=== PATIENT | female | born 1980 | race Caucasian/White ===

== ENCOUNTER 2017-02-22 10:49 | Emergency (ER) | payer BC, OTHER ==
--- NOTE | 2017-02-22 11:03 | EDM.PDOC ---
ED HPI GENERAL MEDICAL PROBLEM - General Chief Complaint: Behavioral/Psych Stated Complaint: MEDICAL CLEARANCE Time Seen by Provider: 02/22/17 11:00 - History of Present Illness INITIAL COMMENTS - FREE TEXT/NARRATIVE: HISTORY AND PHYSICAL: History of present illness: Patient 37-year-old female in custody of police who presents for medical clearance for incarceration Review of systems: As per history of present illness and below otherwise all systems reviewed and negative. Past medical history: As per history of present illness and as reviewed below otherwise noncontributory. Surgical history: As per history of present illness and as reviewed below otherwise noncontributory. Social history: No reported history of drug or alcohol abuse. Family history: As per history of present illness and as reviewed below otherwise noncontributory. Physical exam: HEENT: Atraumatic, normocephalic, pupils reactive, negative for conjunctival pallor or scleral icterus, mucous membranes moist, throat clear, neck supple, nontender, trachea midline. Lungs: Clear to auscultation, breath sounds equal bilaterally, chest nontender. Heart: S1S2, regular, negative for clicks, rubs, or JVD. Abdomen: Soft, nondistended, nontender. Negative for masses or hepatosplenomegaly. Negative for costovertebral tenderness. Pelvis: Stable nontender. Genitourinary: Deferred. Rectal: Deferred. Extremities: Atraumatic, negative for cords or calf pain. Neurovascular unremarkable. Neuro: Awake, alert, follows commands and moves all extremities limited grossly nonfocal exam Diagnostics: None Therapeutics: None Impression: #1 medically clear for incarceration Definitive disposition and diagnosis as appropriate pending reevaluation and review of above. - Related Data Allergies Allergy/AdvReac Type Severity Reaction Status Date / Time Unable to Assess Allergy Unverified 02/22/17 10:57 Home Meds: Home Meds . [Unable to Verify Home Med List] 02/22/17 [History] ED ROS GENERAL - Review of Systems Review Of Systems: ROS reveals no pertinent complaints other than HPI. ED EXAM, GENERAL - Physical Exam Exam: See Below (See dictation) Departure - Departure Time of Disposition: 11:02 Disposition: Home, Self-Care 01 Condition: Good Clinical Impression: Medical clearance for incarceration - Discharge Information Forms: ED Department Discharge Additional Instructions: The following information is given to patients seen in the emergency department who are being discharged to home. This information is to outline your options for follow-up care. We provide all patients seen in our emergency department with a follow-up referral. The need for follow-up, as well as the timing and circumstances, are variable depending upon the specifics of your emergency department visit. If you don't have a primary care physician on staff, we will provide you with a referral. We always advise you to contact your personal physician following an emergency department visit to inform them of the circumstance of the visit and for follow-up with them and/or the need for any referrals to a consulting specialist. The emergency department will also refer you to a specialist when appropriate. This referral assures that you have the opportunity for followup care with a specialist. All of these measure are taken in an effort to provide you with optimal care, which includes your followup. Under all circumstances we always encourage you to contact your private physician who remains a resource for coordinating your care. When calling for followup care, please make the office aware that this follow-up is from your recent emergency room visit. If for any reason you are refused follow-up, please contact the [facility] emergency department at and asked to speak to the emergency department charge nurse. [facility] [address] [place] [id number] Follow-up primary medical doctor 1-2 days return as needed as discussed
== END 2017-02-22 11:19 | disposition home or self-care (01) ==
LOC: MW.ED 10:49 → MERGE 10:49 → MW.ED 11:19
DX: Z02.89 Encounter for other administrative examinations (principal)
CPT/HCPCS: 99282

== ENCOUNTER 2017-03-01 19:22 | Emergency (ER) | payer BC, OTHER ==
--- NOTE | 2017-03-01 19:40 | EDM.PDOC ---
ED HPI GENERAL MEDICAL PROBLEM - General Chief Complaint: ENT Problem Stated Complaint: LOWER LIP IS ABCESS Time Seen by Provider: 03/01/17 19:36 Source of Information: Reports: Patient History Limitations: Reports: No Limitations - History of Present Illness INITIAL COMMENTS - FREE TEXT/NARRATIVE: HISTORY AND PHYSICAL: []37-year-old female presenting with symptoms over abscess to the lower inner lip History of Present Illness: []Last 3 or 4 days there has been drainage from the abscess area Patient has history of drug abuse drug of choice is methamphetamines Review of Systems: As per history of present illness and below otherwise all systems reviewed and negative. Past medical history: As per history of present illness and as reviewed below otherwise noncontributory. Surgical history: As per history of present illness and as reviewed below otherwise noncontributory. Social history: No reported history of drug or alcohol abuse. Family history: As per history of present illness and as reviewed below otherwise noncontributory. Physical exam: Alert and oriented female nontoxic. Answering questions appropriately in full sentences. HEENT: Atraumatic, normocehpalic, pupils reactive, negative for conjunctival pallor or scleral icterus, mucous membranes moist, throat clear, neck supple, nontender, trachea midline. Gingival disease there is an ulceration to the lower jawline from #26 to #22. Lungs: Clear to auscultation, breath sounds equal bilaterally, chest non tender. Heart: S1S2, regular, negative for clicks, rubs, or JVD. Abdomen: Soft, nondistended, nontender. Negative for masses or hepatossplenmegaly. Negative for costovertebral tenderness. Pelvis: Stable nontender. Genitourinary: Deferred. Rectal: Deferred Extremities: Atraumatic, negative for cords or calf pain. Neurovascular unremarkable. Neuro: Awake, alert, oriented. Cranial nerves II through XII unremarkable. Cerebellum unremarkable. Motor and sensory unremarkable throughout. Exam nonfocal. Diagnostics: []CT scan next of facial with contrast Therapeutics: [Rocephin 1 g IV] Impression: [Dental abscess Gingival disease] Plan: []Discharged to home Prescriptions will be electronically sent to [facility] Clindamycin 300 mg q 8 hrs PCN 500 mg tid for 10 days Follow-up with oral surgeon. Dr. Talamantes Definitive disposition and diagnosis as appropriate pending reevaluation and review of above. Onset: Gradual Duration: Day(s): (2-3) Location: Reports: Face Lower Oral/Mouth Pain Score (Numeric/FACES): 3 - Related Data Allergies Allergy/AdvReac Type Severity Reaction Status Date / Time Tetanus Vaccines and Toxoid Allergy Hives Verified 09/10/15 17:40 [Tetanus Vaccines & Toxoid] Home Meds: Home Meds LORazepam 1 tab PO TID 08/06/15 [History] Meclizine [Antivert] 1 tab PO TID PRN 08/06/15 [History] Naproxen Sodium 1 tab PO BID PRN 08/06/15 [History] PARoxetine [Paxil] 2 tab PO DAILY 08/06/15 [History] Clindamycin HCl [Cleocin HCl] 300 mg PO TID #30 capsule 03/01/17 [Rx] Penicillin V Potassium [IJD: Penicillin V Potassium] 500 mg PO .EVERY 6 HOURS # 20 tab 03/01/17 [Rx] Past Medical History HEENT History: Reports: None Cardiovascular History: Reports: None Respiratory History: Reports: None Gastrointestinal History: Reports: Pancreatitis Neurological History: Reports: Vertigo Psychiatric History: Reports: Anxiety, Depression, Other (See Below) Other Psychiatric History: nervous disorder Endocrine/Metabolic History: Reports: None Hematologic History: Reports: None - Infectious Disease History Infectious Disease History: Reports: Chicken Pox, Shingles - Past Surgical History HEENT Surgical History: Reports: None GI Surgical History: Reports: Cholecystectomy Neurological Surgical History: Reports: None Social & Family History - Family History Family Medical History: Noncontributory - Tobacco Use Smoking Status *Q: Current Every Day Smoker Years of Tobacco use: 15 Packs/Tins Daily: 1 - Recreational Drug Use Recreational Drug Use: Yes Drug Use in Last 12 Months: Yes Recreational Drug Type: Reports: Methamphetamine Recreational Drug Use Frequency: Daily ED ROS ENT - Review of Systems Review Of Systems: ROS reveals no pertinent complaints other than HPI. ED EXAM, ENT - Physical Exam Exam: See Below (see dictation) Course - Vital Signs Last Recorded V/S: Last Vital Signs Temp 36.4 C 03/01/17 20:44 Pulse 78 03/01/17 20:44 Resp 16 03/01/17 20:44 BP 125/71 03/01/17 20:44 Pulse Ox 99 03/01/17 20:44 - Orders/Labs/Meds Orders: Active Orders 24 hr Category Date Time Status Max Facial Sinus w Cont [CT] Stat Exams 03/01/17 19:33 Taken Sodium Chloride 0.9% [Saline Flush] Med 03/01/17 19:47 Active 10 ml FLUSH ASDIRECTED PRN Sodium Chloride 0.9% [Saline Flush] Med 03/01/17 19:47 Active 2.5 ml FLUSH ASDIRECTED PRN cefTRIAXone [Rocephin in Dextrose,Iso-Osm 1 GM/50 ML] 1 Med 03/01/17 21:31 Ordered gm Premix Bag 1 bag IV ONETIME Saline Lock Insert [OM.PC] Stat Oth 03/01/17 19:47 Ordered Medication Orders Ceftriaxone Sodium/Dextrose 1 (gm/ Premix) 50 mls @ 100 mls/hr IV ONETIME ONE Stop: 03/01/17 22:00 Last Admin: 03/01/17 21:35 Dose: 100 mls/hr Sodium Chloride (Saline Flush) 10 ml FLUSH ASDIRECTED PRN PRN Reason: Keep Vein Open Sodium Chloride (Saline Flush) 2.5 ml FLUSH ASDIRECTED PRN PRN Reason: Keep Vein Open Meds: Medications Generic Name Dose Route Start Last Admin Trade Name Freq PRN Reason Stop Dose Admin Ceftriaxone Sodium/Dextrose 1 50 mls @ 100 mls/hr 03/01/17 21:31 03/01/17 21: 35 gm/ Premix IV 03/01/17 22:00 100 mls/hr ONETIME ONE Administration Sodium Chloride 10 ml 03/01/17 19:47 Saline Flush FLUSH ASDIRECTED PRN Keep Vein Open Sodium Chloride 2.5 ml 03/01/17 19:47 Saline Flush FLUSH ASDIRECTED PRN Keep Vein Open Discontinued Medications Generic Name Dose Route Start Last Admin Trade Name Freq PRN Reason Stop Dose Admin Ceftriaxone Sodium 1,000 mg/ 4 mls @ 4 mls/sec 03/01/17 21:09 Lidocaine HCl IM 03/01/17 21:10 ONETIME ONE Ondansetron HCl 4 mg 03/01/17 19:47 03/01/17 19:50 Zofran IVPUSH 03/01/17 19:48 4 mg ONETIME ONE Administration Ondansetron HCl Confirm 03/01/17 19:48 03/01/17 20:36 Zofran Administered 03/01/17 19:49 Not Given Dose 4 mg .ROUTE .STK-MED ONE Promethazine HCl 25 mg 03/01/17 20:37 03/01/17 20:42 Phenergan IM 03/01/17 20:38 25 mg ONETIME ONE Administration Departure - Departure Time of Disposition: 21:14 Disposition: Home, Self-Care 01 Condition: Good Clinical Impression: Dental abscess - Discharge Information Prescriptions: Clindamycin HCl [Cleocin HCl] 300 mg PO TID #30 capsule Penicillin V Potassium [IJD: Penicillin V Potassium] 500 mg PO .EVERY 6 HOURS # 20 tab Referrals: PCP,None [Primary Care Provider] - Sai Hernandez, AGUILA [Physician] - Forms: ED Department Discharge Additional Instructions: The following information is given to patients seen in the emergency department who are being discharged to home. This information is to outline your options for follow-up care. We provide all patients seen in our emergency department with a follow-up referral. The need for follow-up, as well as the timing and circumstances, are variable depending upon the specifics of your emergency department visit. If you don't have a primary care physician on staff, we will provide you with a referral. We always advise you to contact your personal physician following an emergency department visit to inform them of the circumstance of the visit and for follow-up with them and/or the need for any referrals to a consulting specialist. The emergency department will also refer you to a specialist when appropriate. This referral assures that you have the opportunity for followup care with a specialist. All of these measure are taken in an effort to provide you with optimal care, which includes your followup. Under all circumstances we always encourage you to contact your private physician who remains a resource for coordinating your care. When calling for followup care, please make the office aware that this follow-up is from your recent emergency room visit. If for any reason you are refused follow-up, please contact the [facility] emergency department at and asked to speak to the emergency department charge nurse. Referral has been and it made to Dr. Sai Hernandez oral and facial surgery [facility] [address] [place] [address] Phone number [phone] - My Orders Last 24 Hours: My Active Orders 03/01/17 19:33 Max Facial Sinus w Cont [CT] Stat 03/01/17 19:47 Sodium Chloride 0.9% [Saline Flush] 10 ml FLUSH ASDIRECTED PRN Sodium Chloride 0.9% [Saline Flush] 2.5 ml FLUSH ASDIRECTED PRN Saline Lock Insert [OM.PC] Stat 03/01/17 21:31 cefTRIAXone [Rocephin in Dextrose,Iso-Osm 1 GM/50 ML] 1 gm Premix Bag 1 bag IV ONETIME - Assessment/Plan Last 24 Hours: My Active Orders 03/01/17 19:33 Max Facial Sinus w Cont [CT] Stat 03/01/17 19:47 Sodium Chloride 0.9% [Saline Flush] 10 ml FLUSH ASDIRECTED PRN Sodium Chloride 0.9% [Saline Flush] 2.5 ml FLUSH ASDIRECTED PRN Saline Lock Insert [OM.PC] Stat 03/01/17 21:31 cefTRIAXone [Rocephin in Dextrose,Iso-Osm 1 GM/50 ML] 1 gm Premix Bag 1 bag IV ONETIME
[2017-03-01] MEDS ORDERED: Ondansetron 4 MG/2 ML SDV IVPUSH ONE (19:47)
[2017-03-01] MEDS ORDERED: Sodium Chloride 0.9% 10 ML Syringe FLUSH PRN (19:47)
[2017-03-01] MEDS ORDERED: Sodium Chloride 0.9% 2.5 ML Syringe FLUSH PRN (19:47)
[2017-03-01] MEDS ORDERED: Ondansetron 4 MG/2 ML SDV ONE (19:48)
[2017-03-01] MEDS ORDERED: Promethazine 25 MG/ML SDV IM ONE (20:37)
[2017-03-01] MEDS ORDERED: cefTRIAXone 1,000 MG in Lidocaine 1% 4 ML IM ONE (21:09)
[2017-03-01] MEDS ORDERED: cefTRIAXone 1 GM in Premix Bag 1 BAG IV ONE (21:31)
[2017-03-01 22:17] VITALS: BP 123/68
--- NOTE | 2017-03-02 09:50 | CT ---
EXAM DATE: 03/01/17 PATIENT'S AGE: 37 Patient: DIOMEDES ALVARADO Facility: [place], [place] Site . Site : [id number] Study: CT Facial [id number]/[id number] 8:31:55 PM Ordering Physician: Doctor Riley Final Report: INDICATION: SORE TO LOWER LIP X 1 WEEK Technique: Unenhanced maxillofacial CT with reformatted coronals and sagittal images. Evaluation degraded by dental amalgam. Comparison: None Findings: The bone mineralization is unremarkable. There is no fracture. Periodontal disease along the left maxillary incisor. Retention cyst versus polyps within the left maxillary sinus. No loculated fluid collection within the lower lip. The mastoid air cells are clear. The osteomeatal units are patent. The temporomandibular joints are unremarkable bilaterally. The globes and orbits are unremarkable. The imaged soft tissues and intracranial contents are grossly unremarkable. Impression: 1. No acute facial bone fracture. 2. No loculated fluid collection within the lower lip. Dictated by: Dom Haynes MD @ 03/01/2017 21:24:11 (Electronic Signature) Report Signed by Proxy. ERIKA
== END 2017-03-01 22:10 | disposition home or self-care (01) ==
LOC: MW.ED 19:22
DX: K04.7 Periapical abscess without sinus (principal); K06.8 Other specified disorders of gingiva and edentulous alveolar ridge; F17.210 Nicotine dependence, cigarettes, uncomplicated; F32.9 Major depressive disorder, single episode, unspecified; Z79.899 Other long term (current) drug therapy; Z90.49 Acquired absence of other specified parts of digestive tract
CPT/HCPCS: 70487; 96365; 96372; 96375; 99283; J0696; J2405; J2550; 99284

== ENCOUNTER 2017-12-21 08:46 | Emergency (ER) | payer BC, OTHER ==
--- NOTE | 2017-12-21 09:05 | EDM.PDOC ---
ED HPI GENERAL MEDICAL PROBLEM - General Chief Complaint: Genitourinary Problem Stated Complaint: MEDICAL CLEARANCE Time Seen by Provider: 12/21/17 08:54 - History of Present Illness INITIAL COMMENTS - FREE TEXT/NARRATIVE: HISTORY AND PHYSICAL: History of present illness: The patient is a 37-year-old female who presents with police for a medical screening exam for incarceration. She complained to the officer that she had burning with urination and that she would like refills on her medications that she has not had for the last one month. She has no complaints of fever chills chest pain shortness of breath abdominal pain vomiting or diarrhea. She states she has an IUD in place. She does have a history of psoriasis but is on no treatment for that currently. She is under arrest only for outstanding warrants and there was no trauma involved with today's events. The patient also complains of a bump on the roof of her mouth that is been there for the last several days but has no pain with swallowing and chewing. Review of systems: As per history of present illness and below otherwise all systems reviewed and negative. Past medical history: As per history of present illness and as reviewed below otherwise noncontributory. Surgical history: As per history of present illness and as reviewed below otherwise noncontributory. Social history: No reported history of drug or alcohol abuse. Family history: As per history of present illness and as reviewed below otherwise noncontributory. Physical exam: General: Well-developed well-nourished female who is nontoxic and vital signs are reviewed by me HEENT: Atraumatic, normocephalic, pupils reactive, negative for conjunctival pallor or scleral icterus, mucous membranes moist, throat clear, neck supple, nontender, trachea midline. Cervical adenopathy or nuchal rigidity. On the hard palate/with for the mouth there is a small raised area which is firm to touch nonfluctuant and nontender. Lungs: Clear to auscultation, breath sounds equal bilaterally, chest nontender. Heart: S1S2, regular rate and rhythm no overt murmurs Abdomen: Soft, nondistended, nontender. NABS. Pelvis: Deferred Genitourinary: Deferred. Rectal: Deferred. Extremities: Atraumatic, negative for cords or calf pain. Neurovascular unremarkable. Neuro: Awake, alert, oriented. Cranial nerves II through XII unremarkable. Cerebellum unremarkable. Motor and sensory unremarkable throughout. Exam nonfocal. Skin: On the face and scalp multiple plaque-like areas of psoriasis are seen which are consistent with the patient's history. A full skin exam was not performed as the patient has no complaints of that. Diagnostics: [facility] Therapeutics: [] I discussed with the patient and the officer that I would not be refilling patient's medications and that the nurse at the retirement could reevaluate her for those meds and the appropriateness of those meds while incarcerated. Impression: Medical screening exam for incarceration Definitive disposition and diagnosis as appropriate pending reevaluation and review of above. back Pain Score (Numeric/FACES): 7 - Related Data Allergies Allergy/AdvReac Type Severity Reaction Status Date / Time Tetanus Vaccines and Toxoid Allergy Hives Verified 12/21/17 08:58 [Tetanus Vaccines & Toxoid] Home Meds: Home Meds LORazepam 1 tab PO TID 08/06/15 [History] Levothyroxine 12/21/17 [History] Venlafaxine [Effexor XR] 12/21/17 [History] Past Medical History HEENT History: Reports: None Cardiovascular History: Reports: None Respiratory History: Reports: None Gastrointestinal History: Reports: Pancreatitis Neurological History: Reports: Vertigo Psychiatric History: Reports: Anxiety, Depression, Other (See Below) Other Psychiatric History: nervous disorder Endocrine/Metabolic History: Reports: None Hematologic History: Reports: None - Infectious Disease History Infectious Disease History: Reports: Chicken Pox, Shingles - Past Surgical History HEENT Surgical History: Reports: None GI Surgical History: Reports: Cholecystectomy Neurological Surgical History: Reports: None Social & Family History - Family History Family Medical History: Noncontributory - Caffeine Use Caffeine Use: Reports: Other ED ROS GENERAL - Review of Systems Review Of Systems: ROS reveals no pertinent complaints other than HPI. ED EXAM, GENERAL - Physical Exam Exam: See Below (See dictation) Course - Vital Signs Last Recorded V/S: Last Vital Signs Temp 36.4 C 12/21/17 09:00 Pulse 85 12/21/17 09:00 Resp 20 12/21/17 09:00 BP 117/84 12/21/17 09:00 Pulse Ox 99 12/21/17 09:00 - Orders/Labs/Meds Orders: Active Orders 24 hr Category Date Time Status HCG QUALITATIVE,URINE [URCHEM] Stat Lab 12/21/17 09:08 Ordered UA W/MICROSCOPIC [URIN] Stat Lab 12/21/17 09:00 Ordered Labs: Laboratory Tests 12/21/17 12/21/17 Range/Units 09:00 09:08 Urine Color YELLOW Urine Appearance CLEAR Urine pH 7.0 (5.0-8.0) Ur Specific Armstrong 1.010 (1.001-1.035) Urine Protein NEGATIVE (NEGATIVE) mg/dL Urine Glucose (UA) NEGATIVE (NEGATIVE) mg/dL Urine Ketones NEGATIVE (NEGATIVE) mg/dL Urine Occult Blood NEGATIVE (NEGATIVE) Urine Nitrite NEGATIVE (NEGATIVE) Urine Bilirubin NEGATIVE (NEGATIVE) Urine Urobilinogen 0.2 (<2.0) EU/dL Ur Leukocyte Esterase TRACE (NEGATIVE) Urine RBC 0-2 (0-2/HPF) Urine WBC 0-1 (0-5/HPF) Ur Epithelial Cells OCCASIONAL (NONE-FEW) Urine Bacteria FEW (NEGATIVE) Urine HCG, Qual NEGATIVE (NEGATIVE) Departure - Departure Time of Disposition: 09:47 Disposition: DC/Tfer to Court of Law En 21 Condition: Good Clinical Impression: Medical clearance for incarceration, Encounter for medical screening examination - Discharge Information Referrals: PCP,None [Primary Care Provider] - Forms: ED Department Discharge Additional Instructions: The following information is given to patients seen in the emergency department who are being discharged to home. This information is to outline your options for follow-up care. We provide all patients seen in our emergency department with a follow-up referral. The need for follow-up, as well as the timing and circumstances, are variable depending upon the specifics of your emergency department visit. If you don't have a primary care physician on staff, we will provide you with a referral. We always advise you to contact your personal physician following an emergency department visit to inform them of the circumstance of the visit and for follow-up with them and/or the need for any referrals to a consulting specialist. The emergency department will also refer you to a specialist when appropriate. This referral assures that you have the opportunity for followup care with a specialist. All of these measure are taken in an effort to provide you with optimal care, which includes your followup. Under all circumstances we always encourage you to contact your private physician who remains a resource for coordinating your care. When calling for followup care, please make the office aware that this follow-up is from your recent emergency room visit. If for any reason you are refused follow-up, please contact the [facility] emergency department at and ask to speak to the emergency department charge nurse. [facility] Primary care- Internal Medicine and Family [address] [address] Push hydration and to schedule follow-up appointment in our clinic when you are able to do so. Discussed with the provider at the retirement your home medications. Return to ER as needed and as discussed - My Orders Last 24 Hours: My Active Orders 12/21/17 09:00 UA W/MICROSCOPIC [URIN] Stat 12/21/17 09:08 HCG QUALITATIVE,URINE [URCHEM] Stat - Assessment/Plan Last 24 Hours: My Active Orders 12/21/17 09:00 UA W/MICROSCOPIC [URIN] Stat 12/21/17 09:08 HCG QUALITATIVE,URINE [URCHEM] Stat
[2017-12-21 09:06] VITALS: BP 117/84
== END 2017-12-21 09:55 ==
LOC: MW.ED 08:46
DX: Z02.89 Encounter for other administrative examinations (principal); F41.9 Anxiety disorder, unspecified; F32.9 Major depressive disorder, single episode, unspecified; Z88.7 Allergy status to serum and vaccine; Z79.899 Other long term (current) drug therapy
CPT/HCPCS: 81001; 81025; 99283

== ENCOUNTER 2018-03-07 13:11 | Emergency (ER) | payer BC, OTHER ==
--- NOTE | 2018-03-07 13:28 | EDM.PDOC ---
ED HPI GENERAL MEDICAL PROBLEM - General Chief Complaint: Neurological Problem Stated Complaint: UNK Time Seen by Provider: 03/07/18 13:18 Source of Information: Reports: Patient History Limitations: Reports: No Limitations - History of Present Illness INITIAL COMMENTS - FREE TEXT/NARRATIVE: HISTORY AND PHYSICAL: History of present illness: Patient is a 38 she'll female who presents to the emergency room in custody of law enforcement after having a seizure like activity 2 while sitting in a chair. Although she was not postictal nor incontinent of urine/stool. Did not hit her head or have any LOC. Patient has a history of Kenosha's disease (new diagnosis) and has recently been placed on new medications which she has been out of since 03/02/18. Her medications were previously supplied by [facility], and due to the holiday weekend the patient had not had her prescriptions refilled. Today she had 2 seizure type activities which is believed to be due to her not having her Methotrexate and Latuda medications. Patient is alert and oriented. Patient reports she has generalized body aches. She denies any fever, chills, chest pain, shortness of breath or cough. Denies any abdominal pain, nausea, vomiting, diarrhea or constipation. Patient is set to 2 the [facility] skilled nursing in the near future. Review of systems: As per history of present illness and below otherwise all systems reviewed and negative. Past medical history: As per history of present illness and as reviewed below otherwise noncontributory. Surgical history: As per history of present illness and as reviewed below otherwise noncontributory. Social history: No reported history of drug or alcohol abuse. Family history: As per history of present illness and as reviewed below otherwise noncontributory. Physical exam: General: Well-developed and well-nourished 38-year-old female. She does have some voluntary jaw and hand and dizziness. HEENT: Atraumatic, normocephalic, pupils equal and reactive bilaterally, negative for conjunctival pallor or scleral icterus, mucous membranes moist, throat clear, neck supple, nontender, trachea midline. No drooling or trismus noted. No meningeal signs Lungs: Clear to auscultation, breath sounds equal bilaterally, chest nontender. Heart: S1S2, regular rate and rhythm without overt murmur Abdomen: Soft, nondistended, nontender. Negative for masses or hepatosplenomegaly. Negative for costovertebral tenderness. Pelvis: Stable nontender. Genitourinary: Deferred. Rectal: Deferred. Skin: She has multiple patches of psoriasis abdomen and arms ([facility] patient variance). Otherwise skin is intact, warm, dry. No lesions or rashes noted. Extremities: Atraumatic, moves all extremities per self although does have some contractures related to her Kenosha's disease. Neurovascular unremarkable. Neuro: Awake, alert, oriented. Cranial nerves II through XII unremarkable. Cerebellum unremarkable. Motor and sensory unremarkable throughout. Exam nonfocal. Notes: Patient was to have an appointment with a primary care provider at [facility] today but due to her seizure like activity they brought her to the emergency room instead. I did receive a letter with the patient's arrival explaining the reason for the missed medications. CBC, CMP and EKG will be done at this time for completeness. I will only refill the methotrexate and Latuda to get her through the next day until she can see her primary care provider is I do not want to assume care of these medications. The intermediate nurse, Iraida Harris was informed of this and will set up patient's follow up appointment for further evaluation and management of patient care and medications. Since blood sugar is 73. Patient is up sitting in the bed and drinking some orange juice. Vital signs remain stable prior to discharge. This information was shared with the patient. She will return to the custody of law enforcement with limited amount of medication prescription with the understanding that she will follow-up with her primary care provider tomorrow. Diagnostics: CBC, CMP, EKG Therapeutics: None Prescription: Methotrexate 2.5mg (disp 2 tabs) Latuda 40mg (Disp #4 tabs) Impression: Seizure like activity Plan: 1. Prescribing enough medication to get patient through until tomorrow, which she needs to be seen and re-evaluated by her primary care provider. Her routine medications need to managed and filled through her primary care provider. 2. Return to the ED as needed and as discussed. Definitive disposition and diagnosis as appropriate pending reevaluation and review of above. Onset: Today back Pain Score (Numeric/FACES): 5 - Related Data Allergies Allergy/AdvReac Type Severity Reaction Status Date / Time clindamycin Allergy Cannot Verified 03/07/18 13:14 Remember Tetanus Vaccines and Toxoid Allergy Hives Verified 12/21/17 08:58 [Tetanus Vaccines & Toxoid] Home Meds: Home Meds LORazepam 1 tab PO TID 08/06/15 [History] Levothyroxine 12/21/17 [History] Venlafaxine [Effexor XR] 12/21/17 [History] Past Medical History HEENT History: Reports: None Cardiovascular History: Reports: None Respiratory History: Reports: None Gastrointestinal History: Reports: Pancreatitis Neurological History: Reports: Vertigo Psychiatric History: Reports: Anxiety, Depression, Other (See Below) Other Psychiatric History: nervous disorder Endocrine/Metabolic History: Reports: None Hematologic History: Reports: None - Infectious Disease History Infectious Disease History: Reports: Chicken Pox, Shingles - Past Surgical History HEENT Surgical History: Reports: None GI Surgical History: Reports: Cholecystectomy Neurological Surgical History: Reports: None Social & Family History - Family History Family Medical History: Noncontributory - Caffeine Use Caffeine Use: Reports: Other ED ROS GENERAL - Review of Systems Review Of Systems: ROS reveals no pertinent complaints other than HPI. ED EXAM, NEURO - Physical Exam Exam: See Below (See dictation) Course - Vital Signs Last Recorded V/S: Last Vital Signs Temp 98.0 F 03/07/18 13:14 Pulse 78 03/07/18 13:37 Resp 18 03/07/18 13:37 BP 109/69 03/07/18 13:37 Pulse Ox 98 03/07/18 13:37 - Orders/Labs/Meds Orders: Active Orders 24 hr Category Date Time Status EKG 12 Lead [EKG Documentation Completion] [RC] STAT Care 03/07/18 13:36 Active Labs: Laboratory Tests 03/07/18 03/07/18 Range/Units 13:12 13:12 WBC 6.41 (4.0-11.0) K/uL RBC 4.30 (4.30-5.90) M/uL Hgb 12.6 (12.0-16.0) g/dL Hct 39.2 (36.0-46.0) % MCV 91.2 (80.0-98.0) fL MCH 29.3 (27.0-32.0) pg MCHC 32.1 (31.0-37.0) g/dL RDW Std Deviation 45.9 (28.0-62.0) fl RDW Coeff of Ulises 14 (11.0-15.0) % Plt Count 365 (150-400) K/uL MPV 8.90 (7.40-12.00) fL Neut % (Auto) 65.0 (48.0-80.0) % Lymph % (Auto) 21.7 (16.0-40.0) % [place] % (Auto) 8.0 (0.0-15.0) % Eos % (Auto) 4.8 (0.0-7.0) % Baso % (Auto) 0.5 (0.0-1.5) % Neut # (Auto) 4.2 (1.4-5.7) K/uL Lymph # (Auto) 1.4 (0.6-2.4) K/uL [place] # (Auto) 0.5 (0.0-0.8) K/uL Eos # (Auto) 0.3 (0.0-0.7) K/uL Baso # (Auto) 0.0 (0.0-0.1) K/uL Nucleated RBC % 0.0 /100WBC Nucleated RBCs # 0 K/uL Sodium 138 (136-145) mmol/L Potassium 4.1 (3.5-5.1) mmol/L Chloride 104 (98-107) mmol/L Carbon Dioxide 29.6 (21.0-32.0) mmol/L BUN 14 (7.0-18.0) mg/dL Creatinine 0.7 (0.6-1.0) mg/dL Est Cr Clr Drug Dosing 91.91 mL/min Estimated GFR (MDRD) > 60.0 ml/min Glucose 73 L (74-106) mg/dL Calcium 9.3 (8.5-10.1) mg/dL Total Bilirubin 0.2 (0.2-1.0) mg/dL AST 20 (15-37) IU/L ALT 25 (14-63) IU/L Alkaline Phosphatase 49 (46-116) U/L Total Protein 7.8 (6.4-8.2) g/dL Albumin 3.8 (3.4-5.0) g/dL Globulin 4.0 H (2.0-3.5) g/dL Albumin/Globulin Ratio 1.0 L (1.3-2.8) Departure - Departure Time of Disposition: 14:10 Disposition: Home, Self-Care 01 Clinical Impression: Encounter for medical screening examination, History of Kenosha's disease, Seizure-like activity - Discharge Information Forms: ED Department Discharge Additional Instructions: The following information is given to patients seen in the emergency department who are being discharged to home. This information is to outline your options for follow-up care. We provide all patients seen in our emergency department with a follow-up referral. The need for follow-up, as well as the timing and circumstances, are variable depending upon the specifics of your emergency department visit. If you don't have a primary care physician on staff, we will provide you with a referral. We always advise you to contact your personal physician following an emergency department visit to inform them of the circumstance of the visit and for follow-up with them and/or the need for any referrals to a consulting specialist. The emergency department will also refer you to a specialist when appropriate. This referral assures that you have the opportunity for follow-up care with a specialist. All of these measure are taken in an effort to provide you with optimal care, which includes your follow-up. Under all circumstances we always encourage you to contact your private physician who remains a resource for coordinating your care. When calling for follow-up care, please make the office aware that this follow-up is from your recent emergency room visit. If for any reason you are refused follow-up, please contact the [facility] Emergency Department at and asked to speak to the emergency department charge nurse. [facility] [address] [place] [id number] [address] 1. Prescribing enough medication to get patient through until tomorrow, which she needs to be seen and re-evaluated by her primary care provider. Her routine medications need to managed and filled through her primary care provider. 2. Return to the ED as needed and as discussed. - My Orders Last 24 Hours: My Active Orders 03/07/18 13:36 EKG 12 Lead [EKG Documentation Completion] [RC] STAT - Assessment/Plan Last 24 Hours: My Active Orders 03/07/18 13:36 EKG 12 Lead [EKG Documentation Completion] [RC] STAT
[2018-03-07 13:53] LABS: CHLORIDE,CL 104 mmol/L (98-107); SODIUM,NA 138 mmol/L (136-145)
[2018-03-07 14:13] VITALS: BP 103/68
== END 2018-03-07 14:20 | disposition home or self-care (01) ==
LOC: MW.ED 13:11
DX: R56.9 Unspecified convulsions (principal); Z88.1 Allergy status to other antibiotic agents; Z88.7 Allergy status to serum and vaccine; Z86.69 Personal history of other diseases of the nervous system and sense organs
CPT/HCPCS: 36415; 80053; 85025; 93005; 99284-25